=== PATIENT | male | born 1940 | race African-American/Black ===

== ENCOUNTER 2016-09-24 07:44 | Emergency (ER) | payer MEDICARE, OTHER ==
[2016-09-24 07:44] VITALS: BP 0/0
[2016-09-24] MEDS ORDERED: SODIUM BICARBONATE 8.4% INJ 50ML SYRINGE ONE (07:47)
[2016-09-24] MEDS ORDERED: CALCIUM CHLOR(10%) 100MG/ML 10ML SYRINGE IV ONE (11:35)
[2016-09-24] MEDS ORDERED: EPINEPHrine HCL 1 MG/10 ML SYRG IV ONE (11:35)
[2016-09-24] MEDS ORDERED: SODIUM BICARBONATE 8.4% INJ 50ML SYRINGE IV ONE (11:35)
== END 2016-09-24 11:46 | disposition expired ==
LOC: ER 07:44 → EDBD 07:44 → EDSEX 07:44 → ER 11:46
DX: I46.9 Cardiac arrest, cause unspecified (principal); I25.810 Atherosclerosis of coronary artery bypass graft(s) without angina pectoris; Z86.718 Personal history of other venous thrombosis and embolism
CPT/HCPCS: 31500; 92950; 99285; J0171